=== PATIENT | male | born 1990 ===

== ENCOUNTER 2018-11-16 08:16 | Emergency (ER) | payer MEDICAID ==
--- NOTE | 2018-11-16 08:53 | ED PDOC ---
Arrival/HPI - General Chief Complaint: ENT Problem Time Seen by Provider: 11/16/18 08:44 Historian: Patient - History of Present Illness Narrative History of Present Illness (Text): 11/16/18 09:14 28 year old male, with no significant past medical history presents to the emergency department complaining of left ear pain for the past 24hours. Patient states his ear hurt, and sound felt dull and cloudy, so he tried to clean it out with a Q-tip. He then realized there was blood on the Q-tip and when his looked into the ear, she saw more blood. Patient reports worsening pain when he coughs. He denies chills, headache, dizziness, chest pain, shortness of breath, dyspnea on exertion, cough, abdominal pain, nausea, vomiting, diarrhea, back pain, neck pain, or any other complaint. PMD: Dr. Lazcano Time/Duration: 24 hours Symptom Onset: Gradual Symptom Course: Unchanged Activities at Onset: Light Context: Home Past Medical History - Provider Review Nursing Documentation Reviewed: Yes - Infectious Disease Hx of Infectious Diseases: None - Psychiatric Hx Substance Use: No Family/Social History - Physician Review Nursing Documentation Reviewed: Yes Family/Social History: No Known Family HX Smoking Status: Current Some Days Smoker Hx Alcohol Use: No Hx Substance Use: No Allergies/Home Meds Allergies/Adverse Reactions: Allergies No Known Allergies Allergy (Verified 11/16/18 08:44) Review of Systems - Physician Review All systems were reviewed & negative as marked: Yes - Review of Systems Cardiovascular: absent: Chest Pain Gastrointestinal: absent: Abdominal Pain Physical Exam - Physical Exam Narrative Physical Exam (Text): 11/16/18 08:51 Constitutional: No acute distress. Head: Normocephalic. Atraumatic. Eyes: PERRL. ENT: Moist mucous membranes. left TM with abrasion and erythema, no ear canal edema, no active bleeding or discharge. Neck: Supple. Cardiovascular: Regular rate. Chest: No tenderness. Respiratory: Clear to auscultation bilaterally. GI: Soft. Nontender. Nondistended. Back: No CVA tenderness. Musculoskeletal: No tenderness or swelling of extremities. Skin: No rash. Neurologic: Alert, no focal deficit. Vital Signs Reviewed: Yes Vital Signs Temp Pulse Resp BP Pulse Ox 11/16/18 08:41 99.9 F H 80 18 161/88 H 98 11/16/18 08:16 99.9 F H 80 18 161/88 H 98 Temperature: Febrile Blood Pressure: Hypertensive Pulse: Regular Respiratory Rate: Normal Appearance: Positive for: Well-Appearing, Non-Toxic, Comfortable Pain Distress: None Mental Status: Positive for: Alert and Oriented X 3 Medical Decision Making ED Course and Treatment: 11/16/18 08:51 Impression: 28 year old male who presents to the emergency department complaining of left ear pain. Plan: -- Motrin Antibiotics prescribed. Discharged home, states has own ENT to follow up with. - Scribe Statement The provider has reviewed the documentation as recorded by the Slim Raphael Provider Scribe Attestation: All medical record entries made by the Scribe were at my direction and personally dictated by me. I have reviewed the chart and agree that the record accurately reflects my personal performance of the history, physical exam, medical decision making, and the department course for this patient. I have also personally directed, reviewed, and agree with the discharge instructions and disposition. Disposition/Present on Arrival - Present on Arrival Any Indicators Present on Arrival: No History of DVT/PE: No History of Uncontrolled Diabetes: No Urinary Catheter: No History of Decub. Ulcer: No History Surgical Site Infection Following: None - Disposition Have Diagnosis and Disposition been Completed?: Yes Diagnosis: Tympanic membrane irritation Disposition: HOME/ ROUTINE Disposition Time: 08:51 Patient Plan: Discharge Condition: GOOD Discharge Instructions (ExitCare): Ear Infections (Otitis Media) Additional Instructions: Make an appointment with your personal ear doctor. Prescriptions: Amoxicillin 875 mg PO BID #20 tablet Forms: [facility] (Serbian)
[2018-11-16 10:39] VITALS: BP 161/88; PULSE 80; RESP 18; TEMP 99.9; O2SAT 98
== END 2018-11-16 09:11 | disposition home or self-care (01) ==
LOC: ED 08:16
DX: H73.892 Other specified disorders of tympanic membrane, left ear (principal)